=== PATIENT | male | born 1970 | race Caucasian/White ===

== ENCOUNTER 2019-03-09 20:00 | Emergency (ER) | payer SELFPAY ==
[2019-03-09 20:12] VITALS: BP 113/76
--- NOTE | 2019-03-09 20:37 | ER Document Report ---
HPI - HPI Patient complains to provider of: Wound recheck Time Seen by Provider: 03/09/19 20:22 Onset: Last week Onset/Duration: Better Quality of pain: Achy Pain Level: 4 Context: Patient presents for removal of drain from shoulder laceration. Patient was seen on 03/02/2019 after cutting his left shoulder. Patient had a drain placed in the wound sutured. Patient was supposed to follow-up with orthopedics though did not have money to be seen. Patient states that he does not plan on following up orthopedics at this time and that he will be in charge of his own physical rehabilitation. Patient is here just for removal of the drain at this time. Associated Symptoms: Other - Right shoulder pain Exacerbated by: Movement Relieved by: Denies Similar symptoms previously: No Recently seen / treated by doctor: Yes - ROS ROS below otherwise negative: Yes Systems Reviewed and Negative: Yes All other systems reviewed and negative - CONSTITUTIONAL Constitutional: DENIES: Fever, Chills - GASTROINTESTINAL Gastrointestinal: DENIES: Nausea - MUSCULOSKELETAL Musculoskeletal: REPORTS: Extremity pain - DERM Skin Color: Normal Skin Problems: Laceration - Sutured laceration with drain in place to right shoulder Past Medical History - General Information source: Patient - Social History Smoking Status: Current Every Day Smoker Frequency of alcohol use: Occasional Drug Abuse: None Occupation: [employer] Family History: Reviewed & Not Pertinent - Medical History Medical History: Negative Renal/ Medical History: Denies: Hx Peritoneal Dialysis Past Surgical History: Reports: Hx Orthopedic Surgery - 8 screws in the neck, 15 in the back, 2 in the knee Vertical Provider Document - CONSTITUTIONAL Agree With Documented VS: Yes Exam Limitations: No Limitations General Appearance: WD/WN, No Apparent Distress - HEENT HEENT: Atraumatic, Normocephalic - NECK Neck: Normal Inspection, Supple - RESPIRATORY Respiratory: Breath Sounds Normal, No Respiratory Distress - CARDIOVASCULAR Cardiovascular: Regular Rate, Regular Rhythm Pulses: Normal: Radial - MUSCULOSKELETAL/EXTREMETIES Musculoskeletal/Extremeties: MAEW - NEURO Level of Consciousness: Awake, Alert, Appropriate Motor/Sensory: No Motor Deficit - DERM Integumentary: Warm, Dry, Laceration - Sutured 4 cm laceration to right anterior shoulder with Ray drain in place. No surrounding erythema Course - Re-evaluation Re-evalutation: 03/09/19 20:34 Ray drain removed with gentle traction. Patient tolerated well. Patient encouraged to follow-up with orthopedics or general surgery for follow-up from his injury. Patient advised that he may need additional procedures to repair the underlying musculature. Patient states that he does not have money to follow-up with orthopedics and that only wants to have wound care at this time. - Vital Signs Vital signs: Temp Pulse Resp BP Pulse Ox 98.2 F 86 18 113/76 98 03/09/19 20:11 03/09/19 20:11 03/09/19 20:11 03/09/19 20:11 03/09/19 20:11 Discharge - Discharge Clinical Impression: Encounter for wound re-check Condition: Stable Disposition: HOME, SELF-CARE Instructions: Laceration Care (OM) Additional Instructions: Return immediately for any new or worsening symptoms Followup with your primary care provider, call tomorrow to make a followup appointment Follow-up with orthopedics or general surgery for further evaluation. You may need additional surgery to repair the underlying muscle involved in your injury. Suture removal in 5 days Forms: Smoking Cessation Education Referrals: [facility] [Provider Group] - Follow up as needed [facility] [Provider Group] - Follow up as needed
== END 2019-03-09 20:50 | disposition home or self-care (01) ==
LOC: ER 20:00
DX: Z48.03 Encounter for change or removal of drains (principal)
CPT/HCPCS: 99282